=== PATIENT | male | born 1985 | race Caucasian/White ===

== ENCOUNTER 2016-11-14 10:43 | Emergency (ER) | payer OTHER ==
[2016-11-14 09:41] LABS: INFLUENZA A POS (NEG); INFLUENZA B NEG (NEG)
== END 2016-11-14 10:48 | disposition home or self-care (01) ==
LOC: CFTX 10:43
PROVIDERS: Emergency Medicine
DX: J10.1 Influenza due to other identified influenza virus with other respiratory manifestations (principal)
CPT/HCPCS: 87804; 87880; 99282

== ENCOUNTER 2016-11-27 20:42 | Emergency (ER) | payer OTHER | END 2016-11-27 21:00 | disposition left against medical advice (07) | LOC: CED 20:42 | DX: Z53.21 Procedure and treatment not carried out due to patient leaving prior to being seen by health care provider (principal) ==

== ENCOUNTER → 2017-01-17 | Outpatient (CLI) | payer OTHER ==
--- NOTE | ~2017-01-17 | CT4 ---
[facility] A Service of [facility] RADIOLOGY TEXT RESULTS PATIENT: STEPHEN MONTES LOCATION: [facility] : 81 UNIT #: [id number] AGE: [address]: REYNA SANCHEZ APRN SEX: M ORDER DR: [id number] [facility] [address] [place], [place] [address] [id number] O MR#: [id number] Acc #: [id number] NAME: STEPHEN MONTES. : 1985 SEX: M STUDY DATE/TIME: 01/17/2017 14:11 UNIT: [facility] ROOM: STUDY DESCRIPTION: CT Abd and Pelv Wo Cont Attending Physician: Reyna Sanchez Aprn Referring Physician: Reyna Sanchez Aprn Ordering Physician: Reyna Sanchez Aprn Primary Care Physician: Reyna Sanchez Aprn MEDICAL IMAGING REPORT This report is preliminary unless electronic signature is present EXAM CT abdomen and pelvis without contrast INDICATION Umbilical pain for the past 3-[address] of the abdomen and pelvis. COMPARISON None. TECHNIQUE This CT examination was performed with one or more of the following radiation dose reduction techniques: automatic exposure control, adjustment of mA and/or kV according to patient size, and iterative reconstruction. FINDINGS The included lung bases are clear. The liver, spleen, kidneys, adrenal glands, pancreas and gallbladder unremarkable. Bowel loops are nondilated. Appendix is normal. There is a 3 cm fat-containing midline hernia just above the umbilicus. Has a neck of 1.5 cm. There is a small fat-containing umbilical hernia that measures 1.6 cm. PELVIS WITHOUT CONTRAST: No pelvic mass or fluid. No aggressive appearing bone lesion. IMPRESSION 1. No acute findings. 2. Fat-containing supraumbilical hernia and small fat[facility] RADIOLOGY TEXT RESULTS PATIENT: STEPH[facility] MONTES [facility] 81 UNIT #: [id number] AGE: [address]: REYNA SANCHEZ APRN SEX: M ORDER DR: umbilical hernia as detailed above. Dictated by... Mo Osorio M.D. THIS IS AN ELECTRONICALLY VERIFIED REPORT Mo Osorio M.D. at 01/19/2017 7:20 AM OLYA/skyler TD: 01/18/2017 10:24 JOB #: [id number] MEDICAL IMAGING REPORT Page 1 of 1 COPY
== END | disposition home or self-care (01) ==
LOC: CCAT 13:49
DX: K42.9 Umbilical hernia without obstruction or gangrene (principal); R10.32 Left lower quadrant pain; R10.31 Right lower quadrant pain
CPT/HCPCS: 74176